=== PATIENT | male | born 1990 | race Caucasian/White ===

== ENCOUNTER 2019-04-10 15:42 | Emergency (ER) | payer OTHER ==
[2019-04-10 15:51] VITALS: BP 149/76
[2019-04-10] MEDS ORDERED: IBUPROFEN 800 MG TABLET PO STA (16:18)
[2019-04-10] MEDS ORDERED: PENICILLIN VK 250 MG TABLET PO STA (16:48)
--- NOTE | 2019-04-10 16:50 | ED Physician Documentation ---
PD HPI HEENT - Stated complaint Stated Complaint: SORE THROAT - Chief complaint Chief Complaint: Heent - History obtained from History obtained from: Patient - History of Present Illness Timing - onset: Yesterday Timing - details: Constant, Still present in ED Location: Throat Worsens: Swalllowing Associated symptoms: Other (chills) Similar symptoms before: No diagnosis (History of similar sore throat about 10 years ago.) - Additional information Additional information: The patient is a 28-year-old male who presents with sore throat that started yesterday and has become worse today. He has felt chills. He denies headache, earaches, or cough. He reports history of similar episode about 10 years ago. Review of Systems Constitutional: reports: Chills Eyes: denies: Irritation Ears: denies: Ear pain Nose: denies: Congestion Throat: reports: Sore throat Cardiac: denies: Chest pain / pressure Respiratory: denies: Dyspnea, Cough GI: denies: Abdominal Pain, Nausea, Vomiting : denies: Dysuria Skin: denies: Rash Musculoskeletal: denies: Back pain Neurologic: denies: Headache PD PAST MEDICAL HISTORY - Past Medical History Past Medical History: No Endocrine/Autoimmune: None - Past Surgical History Past Surgical History: No - Present Medications Home Medications: Ambulatory Orders Medication Instructions Recorded Confirmed Penicillin V Potassium 500 mg PO Q6HR #40 tablet 04/10/19 - Allergies Allergies/Adverse Reactions: Allergies Allergy/AdvReac Type Severity Reaction Status Date / Time No Known Drug Allergies Allergy Verified 04/10/19 15:48 - Social History Does the pt smoke?: No Smoking Status: Never smoker - POLST Patient has POLST: No PD ED PE NORMAL - Vitals Vital signs reviewed: Yes (Systolic hypertension initially.) - General General: Alert and oriented X 3, Well developed/nourished - HEENT HEENT: Atraumatic, Ears normal, Other (Oropharynx reveals enlarged, erythematous tonsils bilaterally, with exudates on the right.) - Neck Neck: Supple, no meningeal sign, Other (Enlarged anterior cervical nodes bilaterally.) - Cardiac Cardiac: RRR, No murmur - Respiratory Respiratory: No respiratory distress, Clear bilaterally - Abdomen Abdomen: Soft, Non tender - Back Back: No CVA TTP - Derm Derm: No rash - Extremities Extremities: No edema - Neuro Neuro: Alert and oriented X 3, No motor deficit, Normal speech Results - Vitals Vitals: Oxygen O2 Source Room air - Labs Labs: Microbiology 04/10/19 15:55 Group A Strep Throat Culture - Final Throat Beta Hemolytic Strep Group C Laboratory Tests 04/10/19 04/10/19 15:55 16:27 Infectious Preston Assay NEGATIVE Group A Strep Rapid Negative PD MEDICAL DECISION MAKING - ED course Complexity details: reviewed results, re-evaluated patient, considered differential, d/w patient ED course: The patient's presentation is most consistent with acute tonsillitis. His rapid strep screen is negative, and Monospot is negative. His examination does not suggest peritonsillar abscess. Treatment in the emergency department included administration of ibuprofen 800 mg orally and penicillin 500 mg orally. He is being discharged with a prescription for penicillin. I discussed with him the expected course of illness, antibiotic treatment and outpatient follow-up, as well as potentially worrisome signs or symptoms that should prompt reevaluation in the emergency department. Departure - Departure Disposition: 01 Home, Self Care Clinical Impression: Tonsillitis Condition: Stable Instructions: ED Tonsillitis Prescriptions: Penicillin V Potassium 500 mg PO Q6HR #40 tablet Comments: Gargle with cool liquids. Take penicillin 4 times daily as prescribed. You can use ibuprofen, up to 800 mg 3 times daily for pain or fever. Follow-up with primary physician within 1 to 2 weeks. Call to schedule appointment. Return to the emergency department if you develop increasing difficulty swallowing, or otherwise worsening symptoms. Forms: Activity restrictions Discharge Date/Time: 04/10/19 16:57
== END 2019-04-10 16:57 | disposition home or self-care (01) ==
LOC: ED 15:42
DX: J03.90 Acute tonsillitis, unspecified (principal)
CPT/HCPCS: 86308; 87070; 87430; 99283; A9270

== ENCOUNTER 2019-07-22 17:11 | Emergency (ER) | payer OTHER ==
[2019-07-22 17:19] VITALS: BP 163/71
--- NOTE | 2019-07-22 18:02 | ED Physician Documentation ---
PD HPI URI - Stated complaint Stated Complaint: SORE THROAT - Chief complaint Chief Complaint: Heent - History obtained from History obtained from: Patient - History of Present Illness Timing - onset: How many days ago (2-3) Timing duration: Days (2-3) Timing details: Gradual onset, Still present Associated symptoms: Sore throat, Swollen nodes Contributing factors: No: Sick contact Similar symptoms before: Diagnosis (group C strep tonsillitis few months ago, treated and improved. This feels similar.) Review of Systems Constitutional: reports: Myalgias. denies: Fever, Chills Nose: denies: Rhinorrhea / runny nose, Congestion, Sinus pressure / pain Throat: reports: Sore throat Respiratory: denies: Dyspnea, Cough GI: denies: Abdominal Pain, Nausea, Vomiting, Diarrhea Skin: denies: Rash, Lesions PD PAST MEDICAL HISTORY - Past Medical History Past Medical History: No Endocrine/Autoimmune: None - Past Surgical History Past Surgical History: No - Present Medications Home Medications: Ambulatory Orders Medication Instructions Recorded Confirmed Penicillin V Potassium 500 mg PO Q6HR #40 tablet 04/10/19 Cephalexin [Keflex] 500 mg PO Q6H #28 capsule 07/22/19 Ibuprofen 600 mg PO TID PRN #20 tablet 07/22/19 dexAMETHasone [Decadron] 4 mg PO DAILY #7 tablet 07/22/19 - Allergies Allergies/Adverse Reactions: Allergies Allergy/AdvReac Type Severity Reaction Status Date / Time No Known Drug Allergies Allergy Verified 07/22/19 17:16 - Social History Does the pt smoke?: No Smoking Status: Never smoker - POLST Patient has POLST: No PD ED PE NORMAL - Vitals Vital signs reviewed: Yes - General General: Alert and oriented X 3, No acute distress, Well developed/nourished - HEENT HEENT: No: Pharynx benign (tonsils enlarged with redness and mild superficial exudate. No peritonsillar edema. ) - Neck Neck: Supple, no meningeal sign, Other (anterior adenopathy) - Cardiac Cardiac: RRR, No murmur - Respiratory Respiratory: Clear bilaterally - Derm Derm: Normal color, Warm and dry - Neuro Neuro: Alert and oriented X 3, No motor deficit, Normal speech Results - Vitals Vitals: Vital Signs - 24 hr 07/22/19 17:16 Temperature 36.9 C Heart Rate 69 Respiratory 16 Rate Blood Pressure 163/71 H O2 Saturation 99 Oxygen O2 Source Room air PD MEDICAL DECISION MAKING - ED course Complexity details: reviewed old records, considered differential (feeling similar to recent (few months ago) strep throat, that was group C strep, so I did not feel rapid strep would be useful. ), d/w patient Departure - Departure Disposition: Home, Self Care Clinical Impression: Acute bacterial tonsillitis Condition: Stable Record reviewed to determine appropriate education?: Yes Instructions: ED Strep Pharyngitis Poss Follow-Up: CHRISTINE NAVAS [Primary Care Provider] - Prescriptions: Cephalexin [Keflex] 500 mg PO Q6H #28 capsule dexAMETHasone [Decadron] 4 mg PO DAILY #7 tablet Ibuprofen 600 mg PO TID PRN #20 tablet PRN Reason: Pain Comments: Stay well-hydrated. Cephalexin 4 times a day for the next week for the infection. Decadron daily for the next week for inflammation. Use ibuprofen or Tylenol if needed for fevers and pains. This should improve readily over the next couple of days. Recheck if not well improved over the next 2 to 3 days. Discharge Date/Time: 07/22/19 18:37
[2019-07-22] MEDS ORDERED: CHERRY SYRUP 10 ML UDC PO ONE (18:10)
[2019-07-22] MEDS ORDERED: DEXAMETHASONE 10 MG/ML VIAL PO STA (18:10)
[2019-07-22] MEDS ORDERED: ACETAMINOPHEN 325 MG TABLET PO STA (18:10)
[2019-07-22] MEDS ORDERED: IBUPROFEN 600 MG TABLET PO STA (18:10)
[2019-07-22] MEDS: cephALEXin 250 MG CAPSULE PO STA (18:26)
== END 2019-07-22 18:37 | disposition home or self-care (01) ==
LOC: ED 17:11
DX: J03.90 Acute tonsillitis, unspecified (principal)
CPT/HCPCS: 99283; A9270